=== PATIENT | male | born 1985 | race Caucasian/White ===

== ENCOUNTER 2018-05-07 17:51 | Emergency (ER) | payer MEDICAID ==
[~2018-05-07] VITALS: Ht 172.7 cm; Wt 78.0 kg
[2018-05-07 18:35] VITALS: BP 153/95
[2018-05-07 19:05] LABS: CLARITY,URINE CLEAR (Clear); COLOR,URINE YELLOW (Yellow); GLUCOSE, URINE NEGATIVE (Neg); KETONES,URINE NEGATIVE (Neg); LEUKOCYTE ESTERASE ,URINE NEGATIVE (Neg); NITRITES, URINE NEGATIVE (Neg); OCCULT BLOOD,URINE NEGATIVE (Neg); PROTEIN,URINE NEGATIVE (Neg); UROBILINOGEN,URINE 0.2 E.U/dL (0.2-1.0)
[2018-05-07 19:16] LABS: UA COLLECTION TYPE CLN CATCH MIDSTREAM
== END 2018-05-07 19:37 | disposition home or self-care (01) ==
LOC: ER 17:54
DX: N48.89 Other specified disorders of penis (principal)
CPT/HCPCS: 81003; 99285

== ENCOUNTER 2020-07-30 12:55 | Emergency (ER) | payer MEDICAID ==
[~2020-07-30] VITALS: Ht 172.7 cm; Wt 97.0 kg
[2020-07-30 12:59] VITALS: BP 139/100
[2020-07-30 13:23] LABS: BASOPHILS % (AUTO) 0.2 % (0-1); EOSINOPHILS # (AUTO) 0.1 X10'3 (0-0.9); EOSINOPHILS % (AUTO) 0.9 % (0-6); HEMATOCRIT 46.7 % (42.0-52.0); HEMOGLOBIN 16.1 g/dl (14.0-17.9); LYMPHOCYTES # (AUTO) 1.3 X10'3 (1.1-4.8); LYMPHOCYTES % (AUTO) 11.6 % (21-51); MEAN CORPUSCULAR HGB CONC 34.4 g/dL (33.0-36.5); MEAN CORPUSCULAR VOLUME 89.9 FL (78-98); MEAN PLATELET VOLUME 9.5 FL (7.4-10.4); MONOCYTES # (AUTO) 0.7 X10'3 (0-0.9); MONOCYTES % (AUTO) 6.6 % (2-12); NEUTROPHILS # (AUTO) 8.9 X10'3 (1.8-7.7); NEUTROPHILS % (AUTO) 80.7 % (42-75); PLATELET COUNT 229 X10'3 (140-440); RED BLOOD COUNT 5.19 X10'6 (4.70-6.10); RED CELL DISTRIBUTION WIDTH 12.8 % (11.5-14.5)
[2020-07-30 13:38] LABS: ALANINE AMINOTRANSFERASE 58 U/L (12-78); ALBUMIN 4.1 G/DL (3.4-5.0); ALBUMIN/GLOBULIN RATIO 1.1 (1.1-1.5); ALKALINE PHOSPHATASE 76 IU/L (46-116); ANION GAP 6 (8-16); ASPARTATE AMINO TRANSFERASE 23 U/L (10-37); BILIRUBIN,TOTAL 0.4 MG/DL (0.1-1.0); BLOOD UREA NITROGEN 15 MG/DL (7-18); BUN/CREATININE RATIO 15.2 (5.4-32.0); CALCIUM 9.5 MG/DL (8.5-10.1); CHLORIDE 103 MMOL/L (99-107); CREATININE 0.99 MG/DL (0.60-1.10); GLUCOSE 99 MG/DL (70-104); POTASSIUM 4.1 MMOL/L (3.5-5.1); SODIUM 139 MMOL/L (135-145); TOTAL CARBON DIOXIDE 29.6 MMOL/L (24-32); TOTAL PROTEIN 7.9 G/DL (6.4-8.2); eGFR 87 ML/MIN
[2020-07-30] MEDS ORDERED: mag hydrox/Alum hydrox/simeth 30ml oral suspension PO ONE (14:40)
[2020-07-30] MEDS ORDERED: famotidine 20mg tablet PO ONE (14:40)
[2020-07-30] MEDS ORDERED: ondansetron 4mg rapidly disintigrating tab PO ONE (14:40)
[2020-07-30] MEDS ORDERED: acetaminophen 325mg tablet PO ONE (14:40)
[2020-07-30] MEDS ORDERED: pantoprazole 40mg Tablet.DR PO ONE (14:40)
[2020-07-30] MEDS ORDERED: ibuprofen tablet 400 MG TABLET PO ONE (14:40)
--- NOTE | 2020-07-30 14:58 | NUR ---
PT STATES HES READY TO LEAVE CAUSE HIS RIDE NEEDS TO LEAVE, NOTIFIED AND PT D/C.
== END 2020-07-30 15:02 | disposition home or self-care (01) ==
LOC: ER 12:56
DX: R10.31 Right lower quadrant pain (principal); M54.5 Low back pain; Z72.89 Other problems related to lifestyle
CPT/HCPCS: 36415; 80053; 85025; 99284